=== PATIENT | female | born 1990 | race Caucasian/White ===

== ENCOUNTER 2018-11-30 12:29 | Emergency (ER) | payer SELFPAY ==
[~2018-11-30] VITALS: Ht 167.6 cm; Wt 66.0 kg
[2018-11-30 13:10] VITALS: BP 119/71
[2018-11-30] MEDS ORDERED: DEXAMETHASONE 10 MG/ML VIAL IM ONE (14:45)
== END 2018-11-30 16:24 | disposition home or self-care (01) ==
LOC: ER 12:29
DX: R50.9 Fever, unspecified (principal); R21 Rash and other nonspecific skin eruption; F14.10 Cocaine abuse, uncomplicated; F15.10 Other stimulant abuse, uncomplicated
CPT/HCPCS: 81025; 96372; 99283; J1100